=== PATIENT | male | born 1935 | race Caucasian/White ===

== ENCOUNTER 2017-07-19 14:57 | Inpatient (IN) | payer MEDICARE, BC ==
[~2017-07-19] VITALS: Ht 182.9 cm; Wt 96.2 kg
[~2017-07-19 14:57] MED LIST: ASPI81TA31 PO; ATEN25TA PO; EZET10TA13 PO; ROSU20TA PO
--- NOTE | 2017-07-19 15:33 | NUR ---
PT IS IN ROOM #2A. DR OJEDA EVALUATED THE PT.
[2017-07-19] MEDS ORDERED: IV NORMAL SALINE 1000 ML BAG IV ONE (15:45)
[2017-07-19] MEDS ORDERED: ACETAMINOPHEN ES 500 MG TABLET PO ONE (15:45)
[2017-07-19 15:46] LABS: *BILIRUBIN,URIN NEGATIVE (NEGATIVE); *BLOOD, URINE 1+ (NEGATIVE); *CLARITY,URINE CLEAR (CLEAR); *COLOR,URINE YELLOW (YELLOW); *KETONES,URINE NEGATIVE (NEGATIVE); *PROTEIN,URINE TRACE (NEGATIVE); *UROBILINOGEN,URINE 0.2 E.U./dl (NORMAL); LEUKOCYTE ESTERASE ,URINE NEGATIVE (NEGATIVE); NITRITE, URINE NEGATIVE (NEGATIVE); PH,URINE 5.5 (5.0-8.0); UGLUCOSE NEGATIVE (NEGATIVE)
[2017-07-19 15:55] LABS: MUCUS,URINE FEW /LPF (0-FEW); WBC,URINE 0-3 /HPF (0-3)
--- NOTE | 2017-07-19 15:55 | NUR ---
[facility] SEPSIS WAS CALLED BY DR OJEDA. CODE SEPSIS PROTOCOL STARTED.
[2017-07-19] MEDS ORDERED: ACETAMINOPHEN ES 500 MG TABLET ONE (16:02)
[2017-07-19 16:05] LABS: BASOPHILS # (AUTO) 0.4 K/uL (0.0-8.0); BASOPHILS % (AUTO) 2.4 % (0.0-2.0); EOSINOPHILS % (AUTO) 0.1 % (0.0-7.0); HEMATOCRIT 38.1 % (40-50); HEMOGLOBIN 12.6 G/DL (14.0-18.0); LYMPHOCYTES # (AUTO) 0.8 K/UL (0.8-4.8); LYMPHOCYTES % (AUTO) 5.8 % (20.5-51.5); MEAN CORPUSCULAR HEMOGLOBIN 29.5 UUG (27.0-31.0); MEAN CORPUSCULAR HGB CONC 33 g/dL (32.0-37.0); MEAN CORPUSCULAR VOLUME 89.1 FL (82.0-92.0); MONOCYTES # (AUTO) 0.7 K/UL (0.1-1.30); MONOCYTES % (AUTO) 4.9 % (0.0-11.0); NEUTROPHILS # (AUTO) 12.7 K/UL (1.8-8.9); NEUTROPHILS % (AUTO) 86.8 % (38.5-71.5); PLATELET COUNT (AUTO) 182 K/UL (150-450); RED BLOOD CELL COUNT(AUTO) 4.27 MIL/UL (4.7-6.1); WHITE BLOOD COUNT (AUTO) 14.6 K/UL (4.0-11.2)
[2017-07-19 16:06] LABS: CARBON DIOXIDE 25 mmol/L (21-32); CHLORIDE 103 mmol/L (98-107); CREATININE 1.1 mg/dL (0.6-1.3); GLUCOSE 124 mg/dL (74-106); POTASSIUM 4.1 mmol/L (3.5-5.1); UREA NITROGEN, BLOOD 27 mg/dL (7-18)
[2017-07-19 16:17] LABS: ALANINE AMINOTRANSFERASE 49 U/L (16-63); ALKALINE PHOSPHATASE 51 U/L (50-136); ASPARTATE AMINOTRANSFERASE 34 U/L (15-37); BILIRUBIN,DIRECT 0.2 mg/dL (0.0-0.2); BILIRUBIN,TOTAL 0.7 mg/dL (0.2-1.0); TOTAL PROTEIN, SERUM 7.8 g/dL (6.4-8.2)
[2017-07-19 16:26] LABS: BAND % (MANUAL) 26 % (0-10); LYMPHOCYTES % (MANUAL) 5 % (20-40); MONOCYTES % (MANUAL) 4 % (2-10); NEUTROPHILS % (MANUAL) 65 % (42-75)
--- NOTE | 2017-07-19 16:32 | NUR ---
CODE SEPSIS CANCELLED BY DR OJEDA ACCORDING TO PT'S LAB's AND PT's CONDITION.
[2017-07-19] MEDS ORDERED: AZITHROMYCIN IV 500 MG in IV DEXTROSE 5% 250 ML IV ONE (16:45)
[2017-07-19] MEDS ORDERED: CEFTRIAXONE 1 G in IV DEXTROSE 5% 50 ML IV ONE (16:45)
[2017-07-19] MEDS ORDERED: CEFTRIAXONE 1 G VIAL ONE ×2 (17:17→22:03)
[2017-07-19] MEDS ORDERED: AZITHROMYCIN 500 MG VIAL IV ONE ×2 (17:18→22:29)
--- NOTE | 2017-07-19 19:18 | NUR ---
REPORT WAS GIVEN TO VAULT CLERK RN.
--- NOTE | 2017-07-19 19:23 | NUR ---
Received report from ROGER Pascal. Assumed care of pt at this time. Pt resting in position of comfort for self. Resp even and unlabored. No obvious signs of distress. Admission pending. Pt to be transferred to the floor s/p change of shift.
--- NOTE | 2017-07-19 19:55 | NUR ---
PT RECEIVED FROM ED VIA WHEELCHAIR. PT ORIENTED TO ROOM. A/OX4. ABLE TO MAKE NEEDS KNOWN. V/S STABLE. IN NO ACUTE DISTRESS. NO C/O PAIN AT THIS TIME. PT DOES NOT C/O OF SOB. PT IS 70 SINUS ON THE TELE MONITOR. PT IV INTACT AND PATENT. AWAITING MD ORDERED. SAFETY MEASURES IMPLEMENTED. CALL LIGHT WITHIN REACH.
[2017-07-19 20:13] VITALS: BP 118/64
[2017-07-19] MEDS ORDERED: ACETAMINOPHEN 325 MG TABLET PO PRN (20:45)
[2017-07-19] MEDS ORDERED: MAGNESIUM HYDROXIDE 30 ML LIQUID UDC PO PRN (20:45)
[2017-07-19] MEDS ORDERED: CEFTRIAXONE 1 G in IV DEXTROSE 5% 50 ML IV SCH (20:45)
[2017-07-19] MEDS ORDERED: TEMAZEPAM 15 MG CAPSULE PO PRN (20:45)
[2017-07-19] MEDS ORDERED: ALBUTEROL SULFATE 2.5 MG/3 ML NEBU NEB PRN (20:45)
[2017-07-19] MEDS ORDERED: ONDANSETRON 4 MG/2 ML VIAL IV PRN (20:45)
[2017-07-19] MEDS ORDERED: AZITHROMYCIN IV 500 MG in IV DEXTROSE 5% 250 ML IV SCH (20:45)
[2017-07-19] MEDS ORDERED: MORPHINE SULFATE 2 MG/1 ML DISP.SYRIN IV PRN (20:45)
[2017-07-19] MEDS ORDERED: DOCUSATE SODIUM 250 MG CAPSULE PO SCH (21:00)
[2017-07-19] MEDS: NYSTATIN SUSPENSION 5 ML LIQUID UDC PO SCH (22:30)
[2017-07-19] MEDS ORDERED: DOCUSATE SODIUM 100 MG CAPSULE PO ONE (22:41)
[2017-07-19] MEDS ORDERED: NYSTATIN SUSPENSION 5 ML LIQUID UDC ONE (22:54)
--- NOTE | 2017-07-19 22:58 | NUR ---
PT RECEIVED COLACE 200 MG DOSAGE. DID NOT ADMINISTER INV DOSE OF 100MG.
[2017-07-20] VITALS: BP 126/68
[2017-07-20] MEDS ORDERED: ACETAMINOPHEN 325 MG TABLET ONE (00:49)
[2017-07-20 05:26] VITALS: BP 125/64
--- NOTE | 2017-07-20 05:45 | NUR ---
END OF SHIFT NOTES. PT SLEPT WELL THROUGHOUT SHIFT. AT BEDSIDE. PT IN STABLE CONDITION. 93 SINUS RHYTHM ON THE TELE MONITOR. IV ANTIBIOTICS INFUSED. TEMPERATURE WNL. NEEDS ATTENDED. SAFETY MAINTAINED.
[2017-07-20] MEDS: PANTOPRAZOLE SODIUM 40 MG TABLET.DR PO SCH (06:13)
[2017-07-20] MEDS: NYSTATIN SUSPENSION 5 ML LIQUID UDC PO SCH ×4 (06:13→17:41)
--- NOTE | 2017-07-20 06:14 | NUR ---
FRANCIA HELD. PT IS A NEW ADMISSION.
[2017-07-20] MEDS ORDERED: NYSTATIN SUSPENSION 5 ML LIQUID UDC ONE (06:16)
[2017-07-20 07:09] LABS: BASOPHILS % (AUTO) 0.1 % (0.0-2.0); EOSINOPHILS # (AUTO) 0.1 K/uL (0.0-0.7); EOSINOPHILS % (AUTO) 0.5 % (0.0-7.0); HEMATOCRIT 34.4 % (40-50); HEMOGLOBIN 11.2 G/DL (14.0-18.0); LYMPHOCYTES # (AUTO) 2.4 K/UL (0.8-4.8); LYMPHOCYTES % (AUTO) 16.7 % (20.5-51.5); MEAN CORPUSCULAR HEMOGLOBIN 29.5 UUG (27.0-31.0); MEAN CORPUSCULAR HGB CONC 33 g/dL (32.0-37.0); MEAN CORPUSCULAR VOLUME 90.5 FL (82.0-92.0); MONOCYTES # (AUTO) 0.7 K/UL (0.1-1.30); MONOCYTES % (AUTO) 4.9 % (0.0-11.0); NEUTROPHILS # (AUTO) 11.1 K/UL (1.8-8.9); NEUTROPHILS % (AUTO) 77.8 % (38.5-71.5); PLATELET COUNT (AUTO) 184 K/UL (150-450); WHITE BLOOD COUNT (AUTO) 14.3 K/UL (4.0-11.2)
[2017-07-20 07:16] LABS: ALANINE AMINOTRANSFERASE 33 U/L (16-63); ALKALINE PHOSPHATASE 46 U/L (50-136); ASPARTATE AMINOTRANSFERASE 23 U/L (15-37); BILIRUBIN,TOTAL 0.9 mg/dL (0.2-1.0); CARBON DIOXIDE 27 mmol/L (21-32); CHLORIDE 106 mmol/L (98-107); CHOLESTEROL 115 mg/dL (<200); CREATININE 1.1 mg/dL (0.6-1.3); GLUCOSE 101 mg/dL (74-106); HDL CHOLESTEROL 42 mg/dL (40-60); MAGNESIUM 1.9 mg/dL (1.8-2.4); PHOSPHOROUS 2.7 mg/dL (2.5-4.9); POTASSIUM 3.9 mmol/L (3.5-5.1); TOTAL PROTEIN, SERUM 6.8 g/dL (6.4-8.2); TRIGLYCERIDES 86 MG/DL (30-150); UREA NITROGEN, BLOOD 20 mg/dL (7-18)
--- NOTE | 2017-07-20 08:00 | NUR ---
Awake, alert, oriented x 4. Verbalized feeling better but with generalized weakness. at bedside, supportive, expressed concern.
[2017-07-20] MEDS ORDERED: TEMAZEPAM 7.5 MG CAPSULE PO PRN (08:15)
[2017-07-20] MEDS: ASPIRIN 81 MG TAB.CHEW PO SCH (08:49)
[2017-07-20 09:01] LABS: THYROID STIMULATING HORMONE 2.725 mIU/mL (0.358-3.740)
--- NOTE | 2017-07-20 11:00 | NUR ---
Ambulating in the hallway, tolerated
[2017-07-20 11:34] VITALS: BP 117/57
[2017-07-20] MEDS ORDERED: ROSU10TA PO (11:41)
--- NOTE | 2017-07-20 14:00 | NUR ---
Echocardiogram done at bedside. Report relayed to Dr. Tan.
[2017-07-20 15:30] VITALS: BP 134/65
--- NOTE | 2017-07-20 17:49 | NUR ---
Ate dinner fairly. Latest temp 99.3. Kept dry and comfortable.
--- NOTE | 2017-07-20 19:30 | NUR ---
RECEIVED PATIENT ALERT ORIENTED, AMBULATE WITH IN THE HALLWAYS, NO SOB NO CHEST PAIN NOTED, CONT IV ABX FOR PNEUMONIA WITH NO ADVERSE REACTION NOTED, NO SOB NO CHEST PAIN. CONT TO MONITOR.
[2017-07-20 20:34] VITALS: BP 105/66
[2017-07-20] MEDS ORDERED: CEFTRIAXONE 1 G in IV DEXTROSE 5% 50 ML IV SCH (21:00)
[2017-07-20] MEDS ORDERED: DOCUSATE SODIUM 100 MG CAPSULE PO SCH (21:00)
--- NOTE | 2017-07-20 21:20 | NUR ---
PATIENT HAS SLIGHT ELEVATED TEMP, COOLING MEASURE DONE, WITH HELP AFTER ONE HOUR T-99.2. CONT TO MONITOR.
[2017-07-20] MEDS ORDERED: AZITHROMYCIN IV 500 MG in IV DEXTROSE 5% 250 ML IV SCH (22:00)
[2017-07-21] MEDS: NYSTATIN SUSPENSION 5 ML LIQUID UDC PO SCH ×3 (00:20→12:45)
--- NOTE | 2017-07-21 05:39 | NUR ---
PATIENT SLEPT MOST OF THE NIGHT, NO SOB NO CHEST PAIN, TEMP 99. SLIGHTLY ELEVATED, NO COMPLAIN OF PAIN AT THIS TIME, ASSISTED WITH TOILETING, CALL LIGHT WITHIN REACH.
[2017-07-21 05:57] VITALS: BP 127/67
[2017-07-21] MEDS: PANTOPRAZOLE SODIUM 40 MG TABLET.DR PO SCH (05:58)
[2017-07-21 06:48] LABS: BASOPHILS % (AUTO) 0.2 % (0.0-2.0); EOSINOPHILS # (AUTO) 0.1 K/uL (0.0-0.7); EOSINOPHILS % (AUTO) 0.8 % (0.0-7.0); HEMATOCRIT 34.7 % (40-50); HEMOGLOBIN 11.2 G/DL (14.0-18.0); LYMPHOCYTES # (AUTO) 1.7 K/UL (0.8-4.8); LYMPHOCYTES % (AUTO) 16.5 % (20.5-51.5); MEAN CORPUSCULAR HEMOGLOBIN 29.1 UUG (27.0-31.0); MEAN CORPUSCULAR HGB CONC 32 g/dL (32.0-37.0); MEAN CORPUSCULAR VOLUME 90.1 FL (82.0-92.0); MONOCYTES # (AUTO) 0.7 K/UL (0.1-1.30); MONOCYTES % (AUTO) 6.6 % (0.0-11.0); NEUTROPHILS % (AUTO) 75.9 % (38.5-71.5); PLATELET COUNT (AUTO) 184 K/UL (150-450); RED BLOOD CELL COUNT(AUTO) 3.85 MIL/UL (4.7-6.1); WHITE BLOOD COUNT (AUTO) 10.5 K/UL (4.0-11.2)
[2017-07-21 07:08] LABS: CARBON DIOXIDE 28 mmol/L (21-32); CHLORIDE 104 mmol/L (98-107); CREATININE 1.1 mg/dL (0.6-1.3); GLUCOSE 111 mg/dL (74-106); PHOSPHOROUS 2.8 mg/dL (2.5-4.9); POTASSIUM 3.9 mmol/L (3.5-5.1); UREA NITROGEN, BLOOD 14 mg/dL (7-18)
[2017-07-21] MEDS: ASPIRIN 81 MG TAB.CHEW PO SCH (09:37)
--- NOTE | 2017-07-21 11:03 | NUR ---
PATIENT SEEN BY DR. OLSON.
[2017-07-21 11:24] VITALS: BP 122/73
[2017-07-21] MEDS ORDERED: LEVO750T21 PO (13:15)
--- NOTE | 2017-07-21 14:50 | NUR ---
DISCHARGING PATIENT HOME IN A STABLE CONDITION. VSS. DISCHARGE INSTRUCTIONS PROVIDED. LIST OF BELONGINGS SIGNED AND ALL WAS TAKEN. NEW PRESCRIPTIONS REVIEWED WITH PATIENT BY PHARMACIST. IV SITE REMOVED, PRESSURE APPLIED AND HEMOSTASIS ACHIEVED. PATIENT LEAVING VIA PRIVATE CAR ACCOMPANIED BY .
[2017-07-21] MEDS ORDERED: LACTOBACILLUS RHAMNOSUS GG 1 EACH CAPSULE PO SCH (21:00)
== END 2017-07-21 15:00 | disposition home or self-care (01) | DRG 871 ==
LOC: ER 14:57 → TELE 18:41 → MED 07-20 11:45
PROVIDERS: ADMIT Internal Medicine; ATTEND Internal Medicine
DX: A41.9 Sepsis, unspecified organism (principal); J18.9 Pneumonia, unspecified organism; I71.2 Thoracic aortic aneurysm, without rupture; B37.0 Candidal stomatitis; E66.9 Obesity, unspecified; I25.10 Atherosclerotic heart disease of native coronary artery without angina pectoris; Z68.28 Body mass index [BMI] 28.0-28.9, adult; R73.03 Prediabetes; Z79.82 Long term (current) use of aspirin; Z87.891 Personal history of nicotine dependence; Z95.1 Presence of aortocoronary bypass graft; Z95.5 Presence of coronary angioplasty implant and graft; Z79.899 Other long term (current) drug therapy; Z90.49 Acquired absence of other specified parts of digestive tract; Z86.79 Personal history of other diseases of the circulatory system; Z86.19 Personal history of other infectious and parasitic diseases; I10 Essential (primary) hypertension; E78.5 Hyperlipidemia, unspecified; I73.9 Peripheral vascular disease, unspecified; I44.0 Atrioventricular block, first degree; D64.9 Anemia, unspecified
CPT/HCPCS: 36415; 70030-TC; 71010; 83605; 83735; 84100; 84443; 85025; 85730; 87040; 87086; 87400; 93005; 93307; A4663; J0456; J0696; J3490; J7030; J7050; J7060

== ENCOUNTER 2018-08-22 12:11 | Emergency (ER) | payer MEDICARE, BC ==
[~2018-08-22] VITALS: Ht 182.9 cm; Wt 96.2 kg
[~2018-08-22 12:11] MED LIST changes: +LEVO750T21 PO; +ROSU10TA PO; -ROSU20TA PO
--- NOTE | 2018-08-22 12:41 | NUR ---
Pt out of ER for xray.
--- NOTE | 2018-08-22 12:55 | NUR ---
Pt back from xray, resting in bed.
[2018-08-22 13:18] VITALS: BP 111/64
== END 2018-08-22 13:18 | disposition home or self-care (01) ==
LOC: ER 12:11
DX: J06.9 Acute upper respiratory infection, unspecified (principal); I10 Essential (primary) hypertension; E78.5 Hyperlipidemia, unspecified; Z95.1 Presence of aortocoronary bypass graft
CPT/HCPCS: 71046; 93005; A4663

== ENCOUNTER 2019-08-10 11:38 | Emergency (ER) | payer MEDICARE, BC ==
[~2019-08-10] VITALS: Ht 182.9 cm; Wt 104.3 kg
[~2019-08-10 11:38] MED LIST changes: -EZET10TA13 PO; +EZET10TA15 PO; -LEVO750T21 PO; -ROSU10TA PO; +ROSU10TA2 PO
[2019-08-10] MEDS ORDERED: EZET10TA15 PO (11:55)
[2019-08-10] MEDS ORDERED: ROSU20TA2 PO (11:55)
[2019-08-10] MEDS ORDERED: ATEN25TA PO (11:55)
[2019-08-10] MEDS ORDERED: ASPI81TA31 PO (11:55)
--- NOTE | 2019-08-10 12:13 | NUR ---
MAYANK Agustin is at bedside.
--- NOTE | 2019-08-10 12:23 | NUR ---
dr Muro is at bedside. MSE in progress.
[2019-08-10] MEDS ORDERED: ALBUTEROL SULFATE 2.5 MG/3 ML NEBU ONE (12:45)
[2019-08-10] MEDS ORDERED: IPRATROPIUM BROMIDE 0.5 MG/2.5 ML NEBU NEB ONE (12:45)
[2019-08-10] MEDS ORDERED: IPRATROPIUM BROMIDE 0.5 MG/2.5 ML NEBU ONE (12:45)
[2019-08-10] MEDS ORDERED: ALBUTEROL SULFATE 2.5 MG/3 ML NEBU NEB ONE (12:45)
[2019-08-10 12:56] LABS: BASOPHILS % (AUTO) 0.4 % (0.0-2.0); EOSINOPHILS # (AUTO) 0.1 K/uL (0.0-0.7); EOSINOPHILS % (AUTO) 1.8 % (0.0-7.0); HEMATOCRIT 35.7 % (36.7-47.1); HEMOGLOBIN 11.8 g/dL (12.5-16.3); LYMPHOCYTES # (AUTO) 1.8 K/uL (20.0-40.0); LYMPHOCYTES % (AUTO) 22.8 % (20.5-51.5); MEAN CORPUSCULAR HGB CONC 33 g/dL (32.5-36.3); MEAN CORPUSCULAR VOLUME 90.6 fL (73.0-96.2); MONOCYTES # (AUTO) 0.7 K/uL (2.0-10.0); MONOCYTES % (AUTO) 9.4 % (0.0-11.0); NEUTROPHILS # (AUTO) 5.2 K/uL (1.8-8.9); NEUTROPHILS % (AUTO) 65.6 % (38.5-71.5); PLATELET COUNT (AUTO) 174 K/uL (152-348); RED BLOOD CELL COUNT(AUTO) 3.94 MIL/uL (4.06-5.63); WHITE BLOOD COUNT (AUTO) 7.9 K/uL (3.6-10.2)
[2019-08-10 12:59] LABS: CARBON DIOXIDE 28 mmol/L (21-32); CHLORIDE 104 mmol/L (98-107); CREATININE 1.1 mg/dL (0.6-1.3); GLUCOSE 128 mg/dL (74-106); POTASSIUM 4.1 mmol/L (3.5-5.1); UREA NITROGEN, BLOOD 17 mg/dL (7-18)
[2019-08-10 13:12] LABS: ALANINE AMINOTRANSFERASE 18 U/L (16-63); ALKALINE PHOSPHATASE 51 U/L (50-136); ASPARTATE AMINOTRANSFERASE 14 U/L (15-37); BILIRUBIN,DIRECT 0.2 mg/dL (0.0-0.2); TOTAL PROTEIN, SERUM 7.1 g/dL (6.4-8.2)
--- NOTE | 2019-08-10 14:00 | NUR ---
DR CARUSO MADE PATIENT AWARE OF TEST RESULTS WILL DC HOME.
[2019-08-10 14:04] VITALS: BP 112/63
--- NOTE | 2019-08-10 14:04 | NUR ---
Patient discharged to home in stable conditon. Written and verbal after care instructions given. Patient verbalizes understanding of instructions.
== END 2019-08-10 14:06 | disposition home or self-care (01) ==
LOC: ER 11:40
DX: J20.9 Acute bronchitis, unspecified (principal); I10 Essential (primary) hypertension; E78.5 Hyperlipidemia, unspecified; Z79.82 Long term (current) use of aspirin; Z79.899 Other long term (current) drug therapy
CPT/HCPCS: 36415; 71046; 83605; 85025; 87040; 93005; A4663; J3590

== ENCOUNTER 2023-02-04 13:50 | Emergency (ER) | payer MEDICARE, BC ==
[~2023-02-04] VITALS: Ht 182.9 cm; Wt 89.8 kg
[~2023-02-04 13:50] MED LIST changes: +ROSU20TA2 PO
--- NOTE | 2023-02-04 14:09 | NUR ---
PT IS IN ROOM #2B, DR MACEDO EVALUATE DTHE PT.
--- NOTE | 2023-02-04 14:42 | NUR ---
PT WAS D/C'd TO HOME. D/C INSTRUCTIONS GIVEN TO THE PT BY DR MACEDO.
[2023-02-04 14:43] VITALS: BP 146/77
== END 2023-02-04 15:08 | disposition home or self-care (01) ==
LOC: ER 13:50
DX: G44.89 Other headache syndrome (principal); Z79.82 Long term (current) use of aspirin; I25.10 Atherosclerotic heart disease of native coronary artery without angina pectoris; Z95.1 Presence of aortocoronary bypass graft; Z79.899 Other long term (current) drug therapy; Z87.01 Personal history of pneumonia (recurrent); E78.5 Hyperlipidemia, unspecified; I10 Essential (primary) hypertension; F41.9 Anxiety disorder, unspecified
CPT/HCPCS: A4663